=== PATIENT | male | born 1995 | race Caucasian/White ===

== ENCOUNTER 2018-03-26 22:53 | Emergency (ER) | payer SELFPAY ==
[~2018-03-26] VITALS: Ht 162.6 cm; Wt 84.4 kg
[2018-03-26 23:20] VITALS: Ht 162.6 cm; Wt 84.4 kg
[2018-03-27 00:39] VITALS: BP 140/76
== END 2018-03-27 00:39 | disposition home or self-care (01) ==
LOC: ED 22:53
DX: K29.70 Gastritis, unspecified, without bleeding (principal)